=== PATIENT | male | born 1985 | race Two or more races ===

== ENCOUNTER 2017-01-08 06:09 | Emergency (ER) | payer MEDICAID ==
[~2017-01-08] VITALS: Ht 177.8 cm; Wt 88.5 kg
[2017-01-08 07:39] LABS: Basophils # (auto) 0 uL; Basophils % (auto) 0.2 % (0.0-2.0); CONDITION Y; DEFINITIVE SEE PRINTOUT; Eosinophils # (auto) 0 uL; Eosinophils % (auto) 0.1 % (0.0-7.0); Hematocrit 42.6 % (41.0-53.0); Hemoglobin 14.4 g/dL (13.5-17.5); Lymphocytes # (auto) 0.9 uL; Lymphocytes % (auto) 5.3 % (10.0-50.0); Mean Corpuscular Hgb Conc. 33.9 g/dL (32.0-36.0); Mean Corpuscular Volume 70.9 fL (80.0-100.0); Mean Platelet Volume 8.4 fL (7.4-10.4); Monocytes # (auto) 1.4 uL; Neutrophils # (auto) 14.8 uL; Neutrophils % (auto) 86.4 % (37.0-80.0); Platelet Count (auto) 249 10^3/uL (140-450); Red Cell Distribution Width 16.8 % (11.6-16.0); White Blood Cell 17.1 10^3/uL (4.4-10.8)
[2017-01-08 07:57] LABS: Albumin 4.3 g/dL (3.4-5.0); Anion Gap 12 (5-15); BUN/Creatinine Ratio 20.3; Blood Urea Nitrogen 27 mg/dL (7-18); Carbon Dioxide 20 mmol/L (21-32); Chloride 109 mmol/L (98-107); GFR African American 80 mL/min; GFR Non-African American 66 mL/min; Glucose 89 mg/dL (74-106); Sodium 141 mmol/L (136-145)
[2017-01-08 08:00] LABS: Alkaline Phosphatase 74 U/L (45-117); Bilirubin, Total 0.2 mg/dL (0.2-1.0); Total Protein 8.3 g/dL (6.4-8.2)
[2017-01-08 08:06] LABS: Aspartate Aminotransferase 37 U/L (15-37); Potassium 4.3 mmol/L (3.5-5.1)
[2017-01-08] MEDS ORDERED: PHENYTOIN IV DILANTIN 500 MG in SODIUM CHL 0.9% 100 ML IV ONE (09:45)
[2017-01-08] MEDS ORDERED: cefTRIAXone 1GM/50ML D5W 50 ML IV ONE (09:45)
[2017-01-08 10:52] LABS: Urine Bilirubin Negative (Negative); Urine Blood TRACE /uL (Negative); Urine Color Yellow (Yellow); Urine Glucose Normal (Normal); Urine Ketone Negative (Negative); Urine Nitrite Negative (Negative); Urine RBC 4 /hpf (0 - 3); Urine Urobilinogen Normal (Negative); Urine pH 5.5 (5.0-8.0)
[2017-01-08] MEDS ORDERED: ONDANSETRON HCL 4 MG/2 ML VIAL IV ONE (11:15)
[2017-01-08] MEDS ORDERED: MORPHINE SULFATE 4 MG/ML SYRG IV ONE (11:15)
[2017-01-08 12:35] VITALS: BP 174/86
[2017-01-08] MEDS ORDERED: PHENYTOIN SODIUM 100 MG CAP PO ONE (14:15)
== END 2017-01-08 14:22 | disposition home or self-care (01) ==
LOC: EDBD 06:09 → ER 06:09
DX: G40.909 Epilepsy, unspecified, not intractable, without status epilepticus (principal); F17.210 Nicotine dependence, cigarettes, uncomplicated; F12.10 Cannabis abuse, uncomplicated
CPT/HCPCS: 36415; 70450; 80053; 80164; 80185; 80307; 80320; 81001; 85025; 96365; 96366; 96367; 96375; 99285; J0696; J1165; J2270; J2405

== ENCOUNTER 2024-02-26 20:50 | Emergency (ER) | payer MEDICAID ==
[~2024-02-26] VITALS: Ht 177.8 cm; Wt 85.0 kg
[2024-02-26 20:55] VITALS: TEMP 98.1
[2024-02-26 20:58] VITALS: PULSE 88; RESP 19; O2SAT 96
[2024-02-26 22:14] LABS: Basophils # (auto) 0 10 ^3/uL (0-0.2); Eosinophils # (auto) 0.1 10 ^3/uL (0-0.8); Eosinophils % (auto) 0.4 % (0.0-7.0); Lymphocytes # (auto) 1.2 10 ^3/uL (0.4-5.4); Mean Corpuscular Volume 69.7 fL (80.0-100.0); Monocytes # (auto) 0.7 10 ^3/uL (0-1.3); Nucleated Red Blood Cells % 0.1 %; Red Cell Distribution Width 16.3 % (11.8-14.3)
[2024-02-26 22:17] LABS: Basophils % (auto) 0.3 % (0.0-2.0); Hematocrit 41.6 % (41.0-53.0); Hemoglobin 13.8 g/dL (13.5-17.5); Lymphocytes % (auto) 8.6 % (10.0-50.0); Mean Corpuscular Hemoglobin 23.2 pg (28.0-32.0); Mean Corpuscular Hgb Conc. 33.3 g/dL (32.0-36.0); Neutrophils # (auto) 12.2 10 ^3/uL (1.6-8.6); Neutrophils % (auto) 85.7 % (37.0-80.0); Platelet Count (auto) 270 10^3/uL (140-450); Red Blood Cells 5.97 10^6/uL (4.5-5.90); White Blood Cell 14.2 10^3/uL (4.4-10.8)
[2024-02-26] MEDS: PHENYTOIN IV DILANTIN 1,000 MG in SODIUM CHL 0.9% 250 ML IV ONE (22:17)
[2024-02-26 22:22] LABS: Urine Bacteria None Seen /hpf (None Seen)
[2024-02-26 22:24] LABS: Chloride 108 mmol/L (98-107); Potassium 3.9 mmol/L (3.5-5.1); Sodium 138 mmol/L (136-145)
[2024-02-26 22:25] LABS: Anion Gap 8 (5-15); Carbon Dioxide 22 mmol/L (20-30)
[2024-02-26 22:26] LABS: Calcium 9.8 mg/dL (8.7-10.4)
[2024-02-26] MEDS: LORazepam 2MG/ML-1ML VIAL IV ONE (22:29)
[2024-02-26 22:30] LABS: BUN/Creatinine Ratio 11.6 (10.0-20.0); Blood Urea Nitrogen 13 mg/dL (9-23); Glucose 95 mg/dL (74-106)
[2024-02-26 22:31] LABS: Blood Alcohol < 3.0 mg/dL (<10)
[2024-02-26 22:36] LABS: Urine Blood 2+ /uL (Negative); Urine Clarity Clear (Clear); Urine Color Light-Yellow (Yellow); Urine Hyaline Cast FEW /lpf (0 - 2); Urine Protein, UAD 1+ (Negative); Urine Specific Gravity 1.017 (1.001-1.035); Urine Urobilinogen Normal (Negative); Urine WBC 1 /hpf (0 - 3); Urine pH 5.5 (5.0-9.0)
[2024-02-26 22:44] LABS: Amphetamine Screen, Urine Pos (NEGATIVE); Barbiturate Scree,Urine Neg (NEGATIVE); Benzodiazephine Screen, Urine Neg (NEGATIVE); Cannabinoid Screen, Urine Neg (NEGATIVE); Cocaine Screen, Urine Neg (NEGATIVE); Opiate Scree,Urine Neg (NEGATIVE); Phencyclidine Screen, Urine Neg (NEGATIVE)
[2024-02-27 07:38] VITALS: BP 141/88; PULSE 63; RESP 15; O2SAT 97
== END 2024-02-27 08:03 | disposition home or self-care (01) ==
LOC: ER 20:50 → EDBD 20:50 → ER 02-27 08:03
DX: G40.909 Epilepsy, unspecified, not intractable, without status epilepticus (principal); F12.90 Cannabis use, unspecified, uncomplicated; F15.90 Other stimulant use, unspecified, uncomplicated; F17.210 Nicotine dependence, cigarettes, uncomplicated
CPT/HCPCS: 36415; 80048; 80307; 80320; 81001; 85025; 96365; 96375; 99285; J1165; J2060; J7050